=== PATIENT | female | born 1985 | race Caucasian/White ===

== ENCOUNTER 2019-12-15 15:14 | Inpatient (IN) ==
[2019-12-15] MEDS ORDERED: NIFEdipine 10 MG CAP PO ONE (15:30)
[2019-12-15] MEDS ORDERED: OXYTOCIN 30 UNITS/500 ML BAG IV PRN ×2 (16:08)
--- NOTE | 2019-12-15 16:21 | History & Physical Report ---
Date of Service December 15, 2019 Assessment & Plan (1) : Ms. Juarez is a 34 y/o female at 38w6d presenting from the clinic after continued elevated BPs and with increased protein in her urine consistent with pre-eclampsia Severe HTN: - 3+ protein on urine dip, with BPs ranging in 180s/100s - will start induction with cervical balloon and IV pitocin. - monitor pre-eclamptic labs - continue to monitor BPs GBS positive: - started Pen G load, with Q4h dosing until delivery (2) GBS (group B Streptococcus carrier), +RV culture, currently : (3) Severe hypertension: History of Present Illness Primary Care Provider: NO PCP Ms. Juarez is a 34 y/o female at 38w6d presenting from the clinic after continued elevated BPs and with increased protein in her urine; being admitted for induction of labor; complications with HTN this . frequently attended OB appointments; no contractions; still feeling good movement; no fluid loss; no vaginal blood loss. no PIH symptoms currently although she did have a dull headache last night that resolved. Labs: (05/16/19) Blood type: O positive Antibody screen: negative Rubella: immune VDRL/RPR: negative Gonorrhea: negative Chlamydia: negative HIV: non-reactive HbSAg: negative GBS positive passed Glucose tolerance Allergies Allergy/AdvReac Type Severity Reaction Status Date / Time Sulfa (Sulfonamide Allergy Mild Verified 12/15/19 11:12 Antibiotics) Home Medications Home Medications Medication Instructions Recorded Confirmed Type albuterol sulfate 2 puff INHALATION QID PRN 12/15/19 12/15/19 History cetirizine 10 mg PO DAILY 12/15/19 12/15/19 History vit-iron fum-folic ac 1 tab PO DAILY 12/15/19 12/15/19 History [ Vitamin] Patient History Medical History (Updated 12/15/19 @ 16:37 by Robel Herrera MD) Depression with anxiety History of varicella Surgical History (Updated 05/30/19 @ 12:21 by Promise Todd) S/P nasal septoplasty S/P wisdom tooth extraction Family History (Updated 05/30/19 @ 12:25 by Promise Todd) Family/Other Breast cancer Father Heart disease Uncle Heart disease Grandfather (Paternal) Heart disease Mother Hypertension Aunt Hypertension Social History (Updated 05/30/19 @ 12:25 by Promise Todd) Preferred Language: Bhutanese Communication Ability: Effective Valet Required: No Beliefs That Will Affect Care: None marital status: Current Living Situation: Spouse Other Information That Helps Us Care for You: No Feels Safe at Home: Yes Safety Concerns: Feels Safe At This Time Smoking Status: Never smoker Do You Dip or Chew Tobacco: No ; Second Hand Exposure: No ; Tobacco Cessation Education Requested by Patient: No Hx Alcohol Use: No Hx Substance Use: No Review of Systems Constitutional: denies fever; chills; sweats; headache Respiratory: denies shortness of breath, difficulty breathing Cardiac: denies chest pain; palpitations; chest pressure Breast: denies breast pain : denies dysuria Physical Exam Physical Exam: General: alert; oriented; no acute distress Cardiac: RRR; no m/g/r Respiratory: CTAB a/p; no wheezes/rales/rhonchi; no increased work of breathing; symmetrical chest rise; no respiratory distress Abdomen: soft; NT/ND; bowel sounds positive Lower extrem: no lower extremity edema or swelling; no deep calf pain; Madeline's sign negative b/l Genitourinary: OB Exam Abdomen: + vertex and + estimated weight (8-9 pounds) Manual OB Exam: + cervical dilation 1 cm, + cervical effacement 60% and + station -1 OB Exam Monitor Tracing: + external FHT monitor used, + external uterine monitor used, + category I and + normal FHT variability Results & Data Vital Signs (Past 12 Hours) Vital Signs Temp Pulse Resp BP 12/15/19 16:11 90 185/108 H 12/15/19 16:02 82 181/104 H 12/15/19 15:51 86 183/108 H 12/15/19 15:40 88 180/105 H 12/15/19 15:20 36.7 C 18 Code Status & VTE Plan VTE Prophylaxis Plan VTE Prophylaxis will be ordered: No Supervising Physician Co-Signing Physician Notes Resident Physician Supervision Note: I interviewed and examined the patient. Discussed with Dr. Herrera and agree with findings and plan as documented in the note. Any exceptions or clarifications are listed here: [None] Documented By: Rachael Tafoya MD, FACOG Coding Level of Care Code None Diagnoses Z34.90 GBS (group B Streptococcus carrier), +RV culture, currently O99.820 Severe hypertension I10 Resident Activity Tracking Resident Involvement: Resident Care Provided Care Provided: OB Delivery
[2019-12-15 16:30] LABS: Hematocrit (blood only) 40.1 % (37-47); Hemoglobin 13.5 g/dL (12.0-16.0); Mean Corpuscular Hemoglobin 29.2 pg (25-34); Mean Corpuscular Volume 86.6 fL (80-100); Mean Platelet Volume 10.9 fL (7.4-10.4); Platelet Count 245 K/uL (130-400); RDW Coefficient of Variation 14.2 % (11.5-14.5); RDW Standard Deviation 44.8 fL (36.4-46.3); Red Blood Count 4.63 M/uL (4.2-5.4); White Blood Count 12.52 K/uL (4.8-10.8)
[2019-12-15] MEDS ORDERED: PENICILLIN G POTASSIUM 6 MU in DEXTROSE 5% 250 ML IV ONE (16:30)
[2019-12-15] MEDS: LACTATED RINGER'S 1,000 ML IV PRN (16:34)
[2019-12-15 16:39] LABS: Mean Corpuscular Hgb Conc 33.7 g/dL (32-36)
[2019-12-15 17:02] LABS: Creatinine Clr Calc Pharmacy 111.7 ml/min; Est GFR (African American) 110.6; Est GFR (Non-African American) 95.4
[2019-12-15] MEDS ORDERED: NIFEdipine 10 MG CAP PO STA (18:38)
[2019-12-15] MEDS ORDERED: LABETALOL HCL IV 5 MG/ML 20ML IV ONE (19:44)
[2019-12-15] MEDS ORDERED: LABETALOL HCL IV 5 MG/ML 20ML IV STA ×3 (19:46→23:20)
[2019-12-15] MEDS ORDERED: ACETAMINOPHEN 325 MG TAB PO PRN (22:02)
[2019-12-15] MEDS ORDERED: ACETAMINOPHEN 325 MG TAB ONE (22:05)
[2019-12-15 22:53] LABS: Basophils # (auto) 0.04 K/uL (0-0.2); Basophils % (auto) 0.3 %; Eosinophils # (auto) 0.13 K/uL (0-0.5); Eosinophils % (auto) 0.9 %; Hematocrit (blood only) 41.1 % (37-47); Hemoglobin 14.2 g/dL (12.0-16.0); Immature Granulocytes # (auto) 0.12 K/uL (0.00-0.02); Immature Granulocytes % (auto) 0.9 %; Lymphocytes # (auto) 1.99 K/uL (1.2-3.4); Lymphocytes % (auto) 14.5 %; Mean Corpuscular Hemoglobin 29.8 pg (25-34); Mean Corpuscular Volume 86.3 fL (80-100); Mean Platelet Volume 10.7 fL (7.4-10.4); Monocytes # (auto) 0.95 K/uL (0.11-0.59); Monocytes % (auto) 6.9 %; Neutrophils # (auto) 10.51 K/uL (1.4-6.5); Neutrophils % (auto) 76.5 %; Platelet Count 273 K/uL (130-400); RDW Coefficient of Variation 14.3 % (11.5-14.5); RDW Standard Deviation 44.4 fL (36.4-46.3); Red Blood Count 4.76 M/uL (4.2-5.4); White Blood Count 13.74 K/uL (4.8-10.8)
[2019-12-15 22:56] LABS: Mean Corpuscular Hgb Conc 34.5 g/dL (32-36)
[2019-12-15 23:08] LABS: Creatinine Clr Calc Pharmacy 129.3 ml/min; Est GFR (African American) 131.9; Est GFR (Non-African American) 113.8
[2019-12-16] MEDS ORDERED: Nursing to Pharmacy Communication STA ×2 (00:28→01:49)
[2019-12-16] MEDS ORDERED: LABETALOL HCL IV 5 MG/ML 20ML IV STA ×4 (00:40→12:59)
[2019-12-16] MEDS: LACTATED RINGER'S 1,000 ML IV PRN ×2 (01:54→07:57)
[2019-12-16] MEDS ORDERED: ePHEDrine sulfate 50 MG/ML AMP ONE (02:21)
[2019-12-16] MEDS ORDERED: BUPIVACAINE 0.25% 30 ML VIAL ONE (02:21)
[2019-12-16] MEDS ORDERED: fentaNYL citrate 100 MCG/2 ML VIAL ONE (02:21)
[2019-12-16] MEDS ORDERED: fentaNYL 2MCG/ML ROPIV 1.25MG/ML 100 ML BAG EPI ONE (02:21)
[2019-12-16] MEDS: PENICILLIN G POTASSIUM 3 MU in DEXTROSE 5% 100 ML IV PRN ×3 (02:27→10:26)
--- NOTE | 2019-12-16 02:28 | Obstetrical Progress Note ---
Date of Service December 16, 2019 Assessment & Plan (1) Severe hypertension: continue to monitor BP will give another dose of 80mg IV labetalol , if still elevated- will do IV hydralazine minimal cervical change on 17 milliunits of pitocin. patient agreeable to epidural analgesia - will then place [facility] to manage pitocin augmentation. Subjective Patient now getting more painful but contractions still not regular. She had a headache earlier after nifedipine which has now gotten better. No other PIH symptoms. BP has been difficult to control despite 2 doses of po Procardia, and a total of 200mg IV labetalol. Last dose of labetalol 80mg IV has been most effective. BP currently now 170/91. pitocin now on 19 milliunits. Review of Systems Review of Systems: All systems reviewed & are unremarkable except as noted in HPI & below Physical Exam Constitutional: WD/WN, vitals as above Psychiatric: A+Ox3, euthymic affect Genitourinary: Manual OB Exam: + cervical dilation 5 cm, + cervical effacement 90% and + station -1 OB Exam Monitor Tracing: + external FHT monitor used, + external uterine monitor used, + category I and + normal FHT variability Results & Data Vital Signs (Past 12 Hours) Vital Signs Temp Pulse Resp BP Pulse Ox 12/16/19 02:20 71 97 12/16/19 02:17 70 170/90 H 12/16/19 02:15 74 98 12/16/19 02:10 74 97 12/16/19 02:07 73 165/91 H 12/16/19 02:05 74 98 12/16/19 02:03 68 173/88 H 12/16/19 02:00 75 98 12/16/19 01:55 73 99 12/16/19 01:50 68 98 12/16/19 01:48 69 204/103 H 12/16/19 01:45 71 98 12/16/19 01:40 71 97 12/16/19 01:35 68 98 12/16/19 01:30 67 98 12/16/19 01:27 69 181/95 H 12/16/19 01:25 66 98 12/16/19 01:20 70 98 12/16/19 01:15 72 97 12/16/19 01:10 73 98 12/16/19 01:05 69 99 12/16/19 01:03 74 158/101 H 12/16/19 01:01 97.5 F L 12/16/19 01:00 81 98 12/16/19 00:55 77 99 12/16/19 00:53 76 175/108 H 12/16/19 00:50 78 98 12/16/19 00:45 72 99 12/16/19 00:42 68 183/92 H 12/16/19 00:40 75 98 12/16/19 00:35 75 98 12/16/19 00:31 73 201/108 H 12/16/19 00:30 75 97 12/16/19 00:26 71 194/105 H 12/16/19 00:25 74 97 12/16/19 00:22 70 198/101 H 12/16/19 00:20 69 98 12/16/19 00:15 74 97 12/16/19 00:10 71 98 12/16/19 00:05 86 99 12/16/19 00:00 79 173/103 H 12/15/19 23:58 74 183/106 H 12/15/19 23:57 75 97 12/15/19 23:52 75 98 12/15/19 23:47 72 99 12/15/19 23:46 73 173/107 H 12/15/19 23:42 73 98 12/15/19 23:37 74 99 12/15/19 23:36 77 168/105 H 12/15/19 23:32 76 99 12/15/19 23:27 80 98 12/15/19 23:26 77 165/98 H 12/15/19 23:22 76 99 12/15/19 23:18 74 181/113 H 12/15/19 23:17 74 99 12/15/19 23:12 75 100 12/15/19 23:09 72 181/110 H 12/15/19 23:07 83 99 12/15/19 23:05 97.5 F L 20 12/15/19 23:02 84 98 12/15/19 22:57 77 98 12/15/19 22:52 79 98 12/15/19 22:48 78 162/103 H 12/15/19 22:47 81 97 12/15/19 22:42 83 157/101 H 98 12/15/19 22:37 82 97 12/15/19 22:32 84 170/98 H 98 12/15/19 22:27 88 99 12/15/19 22:22 85 169/101 H 99 12/15/19 22:17 78 98 12/15/19 22:12 90 98 12/15/19 22:09 85 180/108 H 12/15/19 22:07 91 H 97 12/15/19 22:02 89 98 12/15/19 21:57 96 H 99 12/15/19 21:52 78 180/111 H 12/15/19 21:51 79 185/108 H 12/15/19 21:50 76 96 12/15/19 21:45 81 97 12/15/19 21:40 78 97 12/15/19 21:35 79 98 12/15/19 21:30 81 177/100 H 98 12/15/19 21:25 78 98 12/15/19 21:20 84 98 12/15/19 21:15 77 98 12/15/19 21:11 89 172/93 H 12/15/19 21:10 87 100 12/15/19 21:05 87 99 12/15/19 21:00 89 98 12/15/19 20:55 92 H 98 12/15/19 20:51 81 175/94 H 12/15/19 20:50 83 98 12/15/19 20:45 90 99 12/15/19 20:40 91 H 98 12/15/19 20:35 85 99 12/15/19 20:30 95 H 99 12/15/19 20:27 90 159/98 H 12/15/19 20:25 96 H 98 12/15/19 20:17 89 163/89 H 12/15/19 20:16 89 98 12/15/19 20:11 89 99 12/15/19 20:07 88 159/94 H 12/15/19 20:06 87 98 12/15/19 20:01 86 99 12/15/19 19:57 83 154/90 H 12/15/19 19:56 86 98 12/15/19 19:51 98 H 99 12/15/19 19:48 99 H 170/99 H 12/15/19 19:46 101 H 99 12/15/19 19:41 104 H 99 12/15/19 19:40 20 12/15/19 19:37 106 H 195/104 H 12/15/19 19:36 107 H 99 12/15/19 19:31 107 H 100 12/15/19 19:26 111 H 99 12/15/19 19:20 101 H 180/108 H 12/15/19 19:19 94 H 100 12/15/19 19:14 94 H 100 12/15/19 19:11 96 H 182/104 H 12/15/19 19:10 98.4 F 20 12/15/19 19:09 93 H 100 12/15/19 19:06 87 179/101 H 12/15/19 19:04 95 H 100 12/15/19 19:01 85 180/101 H 12/15/19 18:59 88 100 12/15/19 18:54 84 100 12/15/19 18:51 85 179/102 H 12/15/19 18:49 85 100 12/15/19 18:44 87 100 12/15/19 18:41 92 H 183/107 H 12/15/19 18:39 98 H 100 12/15/19 18:34 94 H 100 12/15/19 18:32 97 H 92 12/15/19 18:31 88 183/100 H 12/15/19 18:29 100 H 99 12/15/19 18:24 92 H 188/109 H 98 12/15/19 18:23 95 H 89 L 12/15/19 18:17 89 100 12/15/19 18:12 92 H 100 12/15/19 18:11 88 180/95 H 12/15/19 18:07 97 H 99 12/15/19 18:02 90 177/95 H 99 12/15/19 17:57 96 H 98 12/15/19 17:52 93 H 178/95 H 100 12/15/19 17:47 91 H 99 12/15/19 17:42 99 H 175/97 H 99 12/15/19 17:41 93 H 166/90 H 12/15/19 17:37 95 H 99 12/15/19 17:32 100 H 99 12/15/19 17:31 94 H 169/93 H 12/15/19 17:27 102 H 100 12/15/19 17:22 100 H 99 12/15/19 17:21 92 H 177/94 H 12/15/19 17:17 94 H 99 12/15/19 17:12 93 H 100 12/15/19 17:11 94 H 173/91 H 12/15/19 17:07 95 H 100 12/15/19 17:02 93 H 100 12/15/19 17:01 91 H 178/98 H 12/15/19 16:57 91 H 99 12/15/19 16:52 86 100 12/15/19 16:51 80 190/104 H 12/15/19 16:47 87 100 12/15/19 16:42 77 100 12/15/19 16:41 79 206/113 H 12/15/19 16:40 98.1 F 18 12/15/19 16:37 83 100 12/15/19 16:32 74 100 12/15/19 16:31 84 83 L 12/15/19 16:11 90 185/108 H 12/15/19 16:02 82 181/104 H 12/15/19 15:51 86 183/108 H 12/15/19 15:40 88 180/105 H 12/15/19 15:20 98.1 F 18 PG Care Time/CCT Total # of Minutes Spent Total Time Spent with Patient: Total time spent is greater than 50% in coordination of care (as documented) at patient's floor/unit and/or counseling patient: Coding Level of Care Code None Diagnoses Severe hypertension I10
[2019-12-16 02:35] LABS: Platelet Count 248 K/uL (130-400)
[2019-12-16] MEDS ORDERED: NALOXONE HCL 1 MG in SODIUM CHLORIDE 0.9% 1000ML 1,000 ML IV PRN (03:37)
[2019-12-16] MEDS ORDERED: ONDANSETRON INJ 2 MG/ML 2 ML VIAL IV PRN (03:37)
[2019-12-16] MEDS ORDERED: NALBUPHINE HCL INJ 10 MG/ML AMP IV PRN (03:37)
[2019-12-16] MEDS ORDERED: NALOXONE HCL 0.4 MG/1 ML VIAL/CARP IV PRN (03:37)
[2019-12-16] MEDS ORDERED: PROMETHAZINE HCL 6.25 MG in SODIUM CHLORIDE 0.9% 50 ML IV PRN (03:37)
[2019-12-16] MEDS ORDERED: ePHEDrine sulfate 50 MG/ML AMP IV PRN (03:37)
[2019-12-16] MEDS ORDERED: fentaNYL 2MCG/ML ROPIV 1.25MG/ML 100 ML BAG EPI PRN (03:37)
[2019-12-16] MEDS ORDERED: DiphenhydrAMINE HCL 50 MG/ML VIAL IV PRN (03:37)
--- NOTE | 2019-12-16 03:37 | Anesthesiology Consultation ---
Date of Service December 16, 2019 Severe Pre Ecclampsia Assessment & Plan (1) Encounter for pre-operative examination: Chart Review Chart Review: Acceptable Risk for Surgery and Patient NOT seen in Pre Admission Testing Consults Requested none ASA ASA3 Proposed Anesthesia Anesthesia Type: Labor Epidural History Height/Weight Height: 5 ft 1.5 in Weight: 105.687 kg Allergies Allergy/AdvReac Type Severity Reaction Status Date / Time Sulfa (Sulfonamide Allergy Mild Verified 12/15/19 11:12 Antibiotics) Medications Home Medications Medication Instructions Recorded Confirmed Last Taken albuterol sulfate 2 puff INHALATION QID PRN 12/15/19 12/15/19 Unknown cetirizine 10 mg PO DAILY 12/15/19 12/15/19 12/15/19 09:00 vit-iron fum-folic ac 1 tab PO DAILY 12/15/19 12/15/19 12/15/19 09:00 [ Vitamin] Active Medications Generic Name Dose Route Start Last Admin Trade Name Freq PRN Reason Stop Dose Admin Acetaminophen 650 mg 12/15/19 22:02 12/15/19 22:07 Tylenol PO 01/14/20 22:01 650 mg Q4H PRN Administration Headache Lactated Ringer's 1,000 mls @ 125 mls/hr 12/15/19 16:08 12/16/19 01:54 Lr IV 12/17/19 16:07 125 mls/hr .Q8H PRN Administration L&D Protocol Protocol Penicillin G Potassium 3 mu/ 106 mls @ 100 mls/hr 12/15/19 16:08 12/16/19 02:27 Dextrose IV 12/25/19 16:07 100 mls/hr Q4H PRN Administration Give until delivery Oxytocin 30 units in 500 mls @ 17 mls/hr 12/15/19 16:08 12/16/19 01:30 Pitocin IV 12/17/19 16:07 1.02 units/hr .Q24H PRN 17 mls/hr Labor Induction/Augmentation Titration Protocol 1.02 UNITS/HR Past Medical History Medical History Depression with anxiety History of varicella Past Family History Family History Family/Other Breast cancer Father Heart disease Uncle Heart disease Grandfather (Paternal) Heart disease Mother Hypertension Aunt Hypertension Past Surgical History Surgical History S/P nasal septoplasty S/P wisdom tooth extraction Social History Smoking Status: Never smoker Do You Dip or Chew Tobacco: No Hx Alcohol Use: No Hx Substance Use: No substance use type: does not use Physical Exam Vital Signs Last Vital Signs Temp 36.4 C L 12/16/19 03:10 Pulse 72 12/16/19 03:32 Resp 20 12/16/19 03:14 BP 137/72 12/16/19 03:31 Pulse Ox 99 12/16/19 03:32 Testing Laboratory Results 12/16/19 02:29 12/15/19 22:24
[2019-12-16] MEDS ORDERED: LABETALOL HCL IV 5 MG/ML 20ML IV ONE (06:16)
[2019-12-16] MEDS ORDERED: Nursing to Pharmacy Communication ONE (06:19)
[2019-12-16 07:29] LABS: Basophils # (auto) 0.02 K/uL (0-0.2); Basophils % (auto) 0.1 %; Eosinophils # (auto) 0.02 K/uL (0-0.5); Eosinophils % (auto) 0.1 %; Hematocrit (blood only) 39.8 % (37-47); Hemoglobin 13.3 g/dL (12.0-16.0); Immature Granulocytes % (auto) 0.6 %; Lymphocytes # (auto) 0.96 K/uL (1.2-3.4); Lymphocytes % (auto) 5.6 %; Mean Corpuscular Hemoglobin 28.9 pg (25-34); Mean Corpuscular Volume 86.5 fL (80-100); Mean Platelet Volume 10.7 fL (7.4-10.4); Monocytes # (auto) 0.85 K/uL (0.11-0.59); Neutrophils # (auto) 15.19 K/uL (1.4-6.5); Neutrophils % (auto) 88.6 %; Platelet Count 233 K/uL (130-400); RDW Coefficient of Variation 14.4 % (11.5-14.5); RDW Standard Deviation 44.7 fL (36.4-46.3); White Blood Count 17.14 K/uL (4.8-10.8)
[2019-12-16 07:54] LABS: Creatinine Clr Calc Pharmacy 114.6 ml/min; Est GFR (Non-African American) 98.4
[2019-12-16 08:04] LABS: Mean Corpuscular Hgb Conc 33.4 g/dL (32-36)
[2019-12-16] MEDS ORDERED: ACETAMINOPHEN 325 MG TAB PO PRN (12:11)
[2019-12-16] MEDS ORDERED: bisacodyL 10 MG SUPP PR PRN (12:11)
[2019-12-16] MEDS ORDERED: HYDROCORTISONE ACETATE 25 MG SUPP PR PRN (12:11)
[2019-12-16] MEDS ORDERED: DIPHTHERIA/TETANUS/PERTUSSIS 0.5 ML SYR/VIAL IM ONE (12:11)
[2019-12-16] MEDS ORDERED: SUPERCREAM 0.870% 15 GM JAR EXT PRN (12:11)
[2019-12-16] MEDS ORDERED: BENZOCAINE 20% AER SPR 82.5 GM CAN EXT PRN (12:11)
[2019-12-16] MEDS ORDERED: OXYTOCIN 30 UNITS/500 ML BAG IV PRN (12:11)
[2019-12-16] MEDS ORDERED: MAG SULFATE 6GM BOLUS FROM BAG IV ONE (12:59)
[2019-12-16] MEDS ORDERED: LABETALOL HCL 200 MG TAB PO SCH ×2 (13:10→21:00)
--- NOTE | 2019-12-16 13:27 | Delivery Summary ---
DATE OF OPERATION: 12/16/2019 PROCEDURE: Normal spontaneous vaginal delivery with first degree perineal laceration repair. SURGEON: López Burnett MD. PREOPERATIVE DIAGNOSES: 1. Single intrauterine at 39 weeks 0 days gestational age. 2. Preeclampsia. 3. Group B Streptococcus positive. POSTOPERATIVE DIAGNOSES: 1. Single intrauterine at 39 weeks 0 days gestational age. 2. Preeclampsia. 3. Group B Streptococcus positive. 4. Status post delivery. ESTIMATED BLOOD LOSS: 300 mL. DRAINS: None. FLUIDS: Continuous lactated Ringer. URINE OUTPUT: Not measured. COMPLICATIONS: None. FINDINGS: Viable with weight pending, Apgars of 6 and 9 at one and five minutes, respectively. DESCRIPTION OF PROCEDURE: The patient progressed to 10 cm dilated, 100% effaced, +3 station, pushed over intact perineum with epidural anesthesia and delivered a viable with weight and Apgars as noted above. Head of the delivered in GRICELDA position, restituted to right transverse. There was no nuchal but a big portion of cord followed the head and the body and shoulders quickly followed. There was noted to be a compound presentation of the posterior arm, which was unable to be swept out and was delivered through. The was noted to be floppy upon delivery with a terminal thick meconium noted. The cord was quickly double clamped and cut. was taken to the waiting nursery staff. cord blood was obtained. Attention was then turned to deliver the placenta, which was delivered intact with 3-vessel cord with gentle cord traction. On inspection of the perineum, vagina, and cervix, there was noted to be first degree perineal laceration, which was repaired with 3-0 Vicryl continuous running stitch. Needle, sponge and instrument counts were correct at the completion of the case. Both mother and were stable in the immediate post-delivery period. I attest to the content of the Intraoperative Record and any orders documented therein. Any exception s are noted below.
--- NOTE | 2019-12-16 13:32 | Labor Progress Brief Note ---
Date of Service December 16, 2019 Subjective Evaluated post delivery and noted to have persistent elevated BPs. otherwise denying any PIH symptoms. Recommended MgSO4. Assessment & Plan (1) Supervision of normal first : (2) Severe pre-eclampsia: Recommended MgSO4 which patient is agreeable to. Will treat current severe range BPs with Labetalol 20mg stat and will continue protocol until BPs mild range of better. Discussed risks of seizure and MgSO4. Will continue to monitor. Labs now stat and again at 8pm today. Results & Data Vital Signs (Past 12 Hours) Vital Signs Temp Pulse Resp BP Pulse Ox 12/16/19 13:04 81 198/109 H 12/16/19 12:44 70 195/106 H 12/16/19 12:43 76 196/103 H 12/16/19 12:33 176 H 178/105 H 12/16/19 12:18 75 173/97 H 12/16/19 12:04 82 180/91 H 12/16/19 12:03 83 190/96 H 12/16/19 11:43 78 94 12/16/19 11:38 74 94 12/16/19 11:33 75 94 12/16/19 11:28 84 94 12/16/19 11:26 77 185/93 H 12/16/19 11:23 92 H 97 12/16/19 11:18 96 H 97 12/16/19 11:13 95 H 96 12/16/19 11:11 72 177/90 H 12/16/19 11:08 78 94 12/16/19 11:03 86 95 12/16/19 11:01 87 82 L 12/16/19 10:58 84 96 12/16/19 10:57 80 178/98 H 12/16/19 10:52 83 93 12/16/19 10:49 88 83 L 12/16/19 10:47 86 94 12/16/19 10:44 87 80 L 12/16/19 10:42 81 195/89 H 94 12/16/19 10:38 93 H 79 L 12/16/19 10:37 85 96 12/16/19 10:32 95 H 100 12/16/19 10:27 97 H 169/92 H 97 12/16/19 10:22 68 92 12/16/19 10:17 98 H 87 L 12/16/19 10:16 89 75 L 12/16/19 10:13 72 160/82 H 12/16/19 10:12 76 92 12/16/19 10:10 78 79 L 12/16/19 10:07 79 96 12/16/19 10:03 82 77 L 12/16/19 10:02 83 97 12/16/19 09:58 83 159/79 H 77 L 12/16/19 09:57 76 94 12/16/19 09:52 101 H 94 12/16/19 09:47 88 97 12/16/19 09:45 79 166/84 H 85 L 12/16/19 09:42 76 161/121 H 99 12/16/19 09:40 84 85 L 12/16/19 09:37 71 100 12/16/19 09:32 74 99 12/16/19 09:28 75 184/101 H 12/16/19 09:27 84 98 12/16/19 09:24 71 88 L 12/16/19 09:22 76 100 12/16/19 09:17 77 100 12/16/19 09:13 79 184/114 H 12/16/19 09:12 77 100 12/16/19 09:07 79 99 12/16/19 09:02 81 100 12/16/19 08:57 72 181/103 H 99 12/16/19 08:52 79 99 12/16/19 08:47 78 100 12/16/19 08:42 83 99 12/16/19 08:41 81 172/97 H 12/16/19 08:37 72 100 12/16/19 08:32 71 100 12/16/19 08:27 69 100 12/16/19 08:26 74 162/89 H 12/16/19 08:22 74 99 12/16/19 08:17 73 99 12/16/19 08:12 70 152/78 H 100 12/16/19 08:07 71 99 12/16/19 08:02 71 99 12/16/19 07:57 75 99 12/16/19 07:52 75 99 12/16/19 07:51 73 153/89 H 12/16/19 07:47 74 98 12/16/19 07:42 76 97 12/16/19 07:37 77 98 12/16/19 07:32 82 98 12/16/19 07:27 89 99 12/16/19 07:22 50 L 152/92 H 99 12/16/19 07:17 71 99 12/16/19 07:12 73 98 12/16/19 07:10 36.9 C 72 20 181/96 H 12/16/19 07:07 73 99 12/16/19 07:02 75 98 12/16/19 07:01 71 170/88 H 12/16/19 06:57 75 98 12/16/19 06:52 73 98 12/16/19 06:50 73 175/91 H 12/16/19 06:47 74 98 12/16/19 06:42 76 98 12/16/19 06:38 73 165/90 H 12/16/19 06:37 77 97 12/16/19 06:32 77 98 12/16/19 06:30 20 12/16/19 06:29 71 178/101 H 12/16/19 06:27 70 98 12/16/19 06:22 74 183/107 H 99 12/16/19 06:17 71 98 12/16/19 06:12 75 99 12/16/19 06:08 71 197/102 H 12/16/19 06:07 71 98 12/16/19 06:02 81 100 12/16/19 06:00 36.7 C 20 12/16/19 05:57 80 99 12/16/19 05:52 73 178/101 H 98 12/16/19 05:47 71 98 12/16/19 05:42 75 98 12/16/19 05:38 69 187/103 H 12/16/19 05:37 68 99 12/16/19 05:32 65 99 12/16/19 05:30 20 12/16/19 05:27 69 99 12/16/19 05:23 67 177/95 H 12/16/19 05:22 66 100 12/16/19 05:17 67 99 12/16/19 05:12 74 100 12/16/19 05:09 66 162/83 H 12/16/19 05:07 65 100 12/16/19 05:02 68 98 12/16/19 05:01 36.7 C 12/16/19 04:59 20 12/16/19 04:57 67 99 12/16/19 04:52 67 150/78 H 99 12/16/19 04:47 68 99 12/16/19 04:42 68 99 12/16/19 04:38 64 148/74 H 12/16/19 04:37 67 99 12/16/19 04:32 68 99 12/16/19 04:29 20 12/16/19 04:27 68 99 12/16/19 04:23 68 145/73 H 12/16/19 04:22 69 99 12/16/19 04:17 67 99 12/16/19 04:12 69 98 12/16/19 04:07 69 138/71 99 12/16/19 04:02 70 98 12/16/19 03:57 67 99 12/16/19 03:52 68 141/74 H 99 12/16/19 03:47 71 98 12/16/19 03:42 72 99 12/16/19 03:37 75 140/73 99 12/16/19 03:32 72 99 12/16/19 03:31 68 137/72 12/16/19 03:30 20 12/16/19 03:27 67 98 12/16/19 03:25 20 12/16/19 03:24 78 137/81 12/16/19 03:22 70 134/73 100 12/16/19 03:20 64 20 146/76 H 12/16/19 03:18 65 133/73 12/16/19 03:17 69 98 12/16/19 03:16 65 20 139/71 12/16/19 03:14 65 20 138/71 12/16/19 03:12 57 L 20 139/71 99 12/16/19 03:10 36.4 C L 67 20 138/69 12/16/19 03:08 56 L 156/92 H 12/16/19 03:07 61 98 12/16/19 03:06 62 155/91 H 12/16/19 03:02 61 100 12/16/19 02:58 60 156/93 H 12/16/19 02:57 64 97 12/16/19 02:52 63 99 12/16/19 02:47 73 99 12/16/19 02:44 69 157/93 H 12/16/19 02:42 64 97 12/16/19 02:37 78 98 12/16/19 02:30 72 99 12/16/19 02:25 71 98 12/16/19 02:22 68 170/90 H 12/16/19 02:20 71 97 12/16/19 02:17 70 170/90 H 12/16/19 02:15 74 98 12/16/19 02:10 74 97 12/16/19 02:07 73 165/91 H 12/16/19 02:05 74 98 12/16/19 02:03 68 173/88 H 12/16/19 02:00 75 98 12/16/19 01:55 73 99 12/16/19 01:50 68 98 12/16/19 01:48 69 204/103 H 12/16/19 01:45 71 98 12/16/19 01:40 71 97 12/16/19 01:35 68 98 12/16/19 01:30 67 98 Coding Level of Care Code None Diagnoses Supervision of normal first Z34.00 Severe pre-eclampsia O14.10
[2019-12-16 13:46] LABS: Creatinine Clr Calc Pharmacy 91.4 ml/min; Est GFR (African American) 86.8; Est GFR (Non-African American) 74.9
[2019-12-16] MEDS: MAGNESIUM SULFATE / WTR 40 GM/1,000 ML BAG IV SCH (14:01)
[2019-12-16 14:24] LABS: Hematocrit (blood only) 42.6 % (37-47); Hemoglobin 14.5 g/dL (12.0-16.0); Mean Corpuscular Hemoglobin 29.7 pg (25-34); Mean Corpuscular Volume 87.1 fL (80-100); Mean Platelet Volume 10.8 fL (7.4-10.4); Platelet Count 251 K/uL (130-400); RDW Coefficient of Variation 14.3 % (11.5-14.5); RDW Standard Deviation 45.6 fL (36.4-46.3); Red Blood Count 4.89 M/uL (4.2-5.4); White Blood Count 28.21 K/uL (4.8-10.8)
--- NOTE | 2019-12-16 14:47 | Anesthesia Procedure Note ---
Date of Service December 16, 2019 Anesthesia Post Epidural Note Vital Signs Vital Signs: Temp Pulse Resp BP Pulse Ox 36.9 C 87 20 165/90 H 94 12/16/19 07:10 12/16/19 14:45 12/16/19 07:10 12/16/19 14:45 12/16/19 11:43 Notes Mental Status: alert / awake / arousable and participated in evaluation Nausea / Vomiting: adequately controlled Pain: adequately controlled Airway Patency, RR, SpO2: stable & adequate BP & HR: stable & adequate Hydration State: stable & adequate Neuraxial Anesthesia: was administered and sensory block is resolving Anesthetic Complications: no major complications apparent and Pt Satisfied with anesthetic care Epidural: Removed without complications and With tip intact Notes: platelets checked and were normal immediately prior to pulling the epidural.
[2019-12-16] MEDS: LACTATED RINGER'S 1,000 ML IV SCH (18:05)
[2019-12-16 20:36] LABS: Hematocrit (blood only) 38.6 % (37-47); Hemoglobin 13.1 g/dL (12.0-16.0); Mean Corpuscular Hemoglobin 29.4 pg (25-34); Mean Corpuscular Volume 86.5 fL (80-100); Mean Platelet Volume 10.7 fL (7.4-10.4); Platelet Count 258 K/uL (130-400); RDW Coefficient of Variation 14.4 % (11.5-14.5); RDW Standard Deviation 45.1 fL (36.4-46.3); Red Blood Count 4.46 M/uL (4.2-5.4); White Blood Count 24.58 K/uL (4.8-10.8)
[2019-12-16 20:37] LABS: Mean Corpuscular Hgb Conc 33.9 g/dL (32-36)
[2019-12-16] MEDS: IBUPROFEN 600 MG TAB PO PRN (20:39)
[2019-12-16] MEDS: DOCUSATE SODIUM 100 MG CAP PO SCH (20:39)
[2019-12-16] MEDS: LABETALOL HCL 200 MG TAB PO SCH (20:40)
[2019-12-16 20:53] LABS: Creatinine Clr Calc Pharmacy 122.3 ml/min; Est GFR (African American) 123.4; Est GFR (Non-African American) 106.4; Magnesium 4.5 mg/dl (1.8-2.4)
[2019-12-17 06:31] LABS: Hemoglobin 12.3 g/dL (12.0-16.0); Mean Corpuscular Hgb Conc 33.2 g/dL (32-36); Mean Corpuscular Volume 87.3 fL (80-100); Mean Platelet Volume 10.6 fL (7.4-10.4); Platelet Count 240 K/uL (130-400); RDW Coefficient of Variation 14.7 % (11.5-14.5); RDW Standard Deviation 46.8 fL (36.4-46.3); Red Blood Count 4.24 M/uL (4.2-5.4); White Blood Count 18.47 K/uL (4.8-10.8)
[2019-12-17] MEDS: MAGNESIUM SULFATE / WTR 40 GM/1,000 ML BAG IV SCH (06:42)
[2019-12-17 07:09] LABS: Albumin Level 1.9 gm/dl (3.4-5.0); BUN Creatinine Ratio 14.7 (10-20); Calcium 7.6 mg/dl (8.5-10.1); Creatinine Clr Calc Pharmacy 131.2 ml/min; Est GFR (African American) 132.6; Est GFR (Non-African American) 114.4; Potassium 4.2 mmol/L (3.5-5.1)
[2019-12-17 07:12] LABS: Albumin Globulin Ratio 0.5 (0.9-2); Bilirubin,Total 0.3 mg/dl (0.2-1); Globulin 3.8 gm/dl (2.5-4.0); Total Protein 5.7 gm/dl (6.4-8.2)
[2019-12-17] MEDS: LACTATED RINGER'S 1,000 ML IV SCH (07:32)
--- NOTE | 2019-12-17 08:39 | Obstetrical Progress Note ---
Date of Service December 17, 2019 Assessment & Plan (1) Severe pre-eclampsia: 34yo . PPD 1 . On MgSO4 for Severe PIH. Patient doing well and is scheduled to d/c Mg at 1145am. BPs significantly improved. Continue Labetalol 400mg BID Otherwise doing well post (2) Supervision of normal first : Subjective Ambulation: limited ambulation (On Mg) Voiding: no voiding problems Diet Tolerance:: regular diet Lochia:: Moderate Patient on MgSO4 for severe PIH. Doing well. Denies PIH symptoms. Physical Exam Gastrointestinal (Abdomen) Percussion/Palpation: abdomen soft; abdomen nontender, no guarding and abdomen not rigid Genitourinary OB Exam Abdomen: + fundal height (Below) Fundus: + firm; not tender and not boggy Results & Data Vital Signs (Past 12 Hours) Vital Signs Temp Pulse Resp BP Pulse Ox 12/17/19 08:30 88 160/99 H 12/17/19 08:14 82 98 12/17/19 08:09 82 98 12/17/19 08:04 91 H 99 12/17/19 07:59 88 98 12/17/19 07:54 83 99 12/17/19 07:49 83 98 12/17/19 07:44 90 98 12/17/19 07:39 83 99 12/17/19 07:34 88 98 12/17/19 07:29 81 142/88 H 98 12/17/19 07:24 83 97 12/17/19 07:19 86 98 12/17/19 07:14 83 97 12/17/19 07:09 82 98 12/17/19 07:04 84 99 12/17/19 06:59 87 98 12/17/19 06:54 94 H 99 12/17/19 06:42 86 98 12/17/19 06:37 79 98 12/17/19 06:33 84 141/91 H 12/17/19 06:31 88 98 12/17/19 06:30 18 12/17/19 06:26 82 98 12/17/19 06:21 82 98 12/17/19 06:16 90 99 12/17/19 06:11 93 H 100 12/17/19 06:06 85 98 12/17/19 06:01 87 98 12/17/19 05:56 88 97 12/17/19 05:51 98 H 100 12/17/19 05:46 82 98 12/17/19 05:41 83 98 12/17/19 05:36 82 98 12/17/19 05:31 82 98 12/17/19 05:30 18 12/17/19 05:29 81 119/67 12/17/19 05:26 94 H 100 12/17/19 05:21 84 98 12/17/19 05:16 83 98 12/17/19 05:11 85 99 12/17/19 05:06 85 98 12/17/19 05:01 85 98 12/17/19 04:56 87 98 12/17/19 04:51 84 98 12/17/19 04:46 87 98 12/17/19 04:41 82 97 12/17/19 04:36 83 98 12/17/19 04:31 82 97 12/17/19 04:30 16 12/17/19 04:29 81 107/58 L 12/17/19 04:26 84 98 12/17/19 04:21 83 98 12/17/19 04:16 85 98 12/17/19 04:11 86 98 12/17/19 04:06 87 98 12/17/19 04:01 86 98 12/17/19 03:56 85 97 12/17/19 03:51 94 H 99 12/17/19 03:46 92 H 95 12/17/19 03:41 96 H 98 12/17/19 03:30 36.4 C L 18 12/17/19 03:29 82 148/77 H 99 12/17/19 03:24 86 99 12/17/19 03:19 82 100 12/17/19 03:14 82 99 12/17/19 03:09 83 98 12/17/19 03:04 84 98 12/17/19 02:59 87 99 12/17/19 02:54 82 98 12/17/19 02:49 82 98 12/17/19 02:44 83 98 12/17/19 02:39 80 98 12/17/19 02:34 82 98 12/17/19 02:30 20 12/17/19 02:29 82 125/65 99 12/17/19 02:24 84 100 12/17/19 02:19 83 98 12/17/19 02:14 85 98 12/17/19 02:09 82 97 12/17/19 02:04 81 97 12/17/19 01:59 82 98 12/17/19 01:54 81 97 12/17/19 01:49 85 99 12/17/19 01:44 84 99 12/17/19 01:39 88 99 12/17/19 01:34 87 99 12/17/19 01:30 18 12/17/19 01:29 79 137/75 98 12/17/19 01:24 83 98 12/17/19 01:19 80 98 12/17/19 01:14 78 99 12/17/19 01:09 84 98 12/17/19 01:04 83 99 12/17/19 00:59 84 99 12/17/19 00:54 82 97 12/17/19 00:49 81 98 12/17/19 00:44 82 97 12/17/19 00:39 85 98 12/17/19 00:34 83 98 12/17/19 00:30 20 12/17/19 00:29 79 134/74 97 12/17/19 00:24 81 98 12/17/19 00:19 84 97 12/17/19 00:14 89 98 12/17/19 00:09 82 98 12/17/19 00:04 83 98 12/16/19 23:59 83 98 12/16/19 23:54 87 98 12/16/19 23:49 87 98 12/16/19 23:44 86 97 12/16/19 23:30 36.7 C 86 20 97 12/16/19 23:29 85 126/69 98 12/16/19 23:24 88 98 12/16/19 23:19 83 99 12/16/19 23:14 83 98 12/16/19 23:09 91 H 99 12/16/19 23:04 89 99 12/16/19 22:59 90 99 12/16/19 22:54 87 99 12/16/19 22:49 87 98 12/16/19 22:45 20 12/16/19 22:44 87 97 12/16/19 22:43 85 120/67 12/16/19 22:39 89 99 12/16/19 22:34 85 97 12/16/19 22:29 84 97 12/16/19 22:24 85 97 12/16/19 22:19 84 97 12/16/19 22:14 84 97 12/16/19 22:09 84 97 12/16/19 22:04 84 97 12/16/19 21:59 84 97 12/16/19 21:54 84 97 12/16/19 21:49 85 98 12/16/19 21:45 20 12/16/19 21:44 85 98 12/16/19 21:42 83 132/72 12/16/19 21:39 85 97 12/16/19 21:34 89 99 12/16/19 21:29 85 98 12/16/19 21:24 87 99 12/16/19 21:19 89 99 12/16/19 21:14 86 99 12/16/19 21:12 83 140/82 12/16/19 21:09 88 99 12/16/19 21:04 63 98 12/16/19 21:00 20 12/16/19 20:51 86 100 12/16/19 20:46 93 H 100 12/16/19 20:41 89 100 12/16/19 20:40 84 178/95 H 12/16/19 20:36 88 99
[2019-12-17] MEDS: LABETALOL HCL 200 MG TAB PO SCH (09:28)
[2019-12-17] MEDS: PRENATAL VITAMIN 1 TAB PO SCH (09:29)
[2019-12-17] MEDS: DOCUSATE SODIUM 100 MG CAP PO SCH ×2 (09:29→20:12)
[2019-12-17] MEDS ORDERED: ALBUTEROL HFA 8 GM INHALER INH PRN (09:39)
[2019-12-17] MEDS: CETIRIZINE HCL 10 MG TABLET PO SCH (10:13)
[2019-12-17] MEDS ORDERED: bisacodyL 5 MG TABEC PO SCH (20:00)
[2019-12-17] MEDS: IBUPROFEN 600 MG TAB PO PRN (20:12)
[2019-12-17] MEDS ORDERED: LABETALOL HCL 300 MG TAB PO SCH (21:00)
--- NOTE | 2019-12-18 05:57 | Obstetrical Progress Note ---
Date of Service <Robel Herrera MD - Last Filed: 12/18/19 06:44> December 18, 2019 Assessment & Plan <Robel Herrera MD - Last Filed: 12/18/19 06:44> (1) : PPD#2 - continue routine care - encourage ambulation, and oral intake - after discharge will have follow-up in 6 weeks - BP check in 1 week Subjective <Robel Herrera MD - Last Filed: 12/18/19 06:44> Ms. Juarez is a 34 y/o female ; PPD #2 following spontaneous vaginal delivery; doing well this morning; having minimal abdominal cramping/pain; voiding well; tolerating meals overnight; and able to ambulate some; some persistent spotting with intermittent improvement this morning. Review of Systems Constitutional: denies fever; chills; sweats; headache Respiratory: denies shortness of breath, difficulty breathing Cardiac: denies chest pain; palpitations; chest pressure Breast: denies breast pain : denies dysuria Physical Exam <Robel Herrera MD - Last Filed: 12/18/19 06:44> General: alert; oriented; no acute distress Cardiac: RRR; no m/g/r Respiratory: CTAB a/p; no wheezes/rales/rhonchi; no increased work of breathing; symmetrical chest rise; no respiratory distress Abdomen: soft; NT/ND; bowel sounds positive Uterus: uterine fundus firm; palpable 3cm below umbilicus Lower extrem: no lower extremity edema or swelling; no deep calf pain; Madeline's sign negative b/l Results & Data <Robel Herrera MD - Last Filed: 12/18/19 06:44> Vital Signs (Past 12 Hours) Vital Signs Temp Pulse Resp BP Pulse Ox 12/18/19 03:35 36.4 C L 78 18 152/87 H 98 12/17/19 22:50 36.6 C 81 16 135/85 97 12/17/19 20:05 36.5 C 90 16 149/93 H 98 Laboratory Results 12/17/19 Range/Units 06:06 Sodium 139 (136-145) mmol/L Potassium 4.2 (3.5-5.1) mmol/L Chloride 108 H (98-107) mmol/L Carbon Dioxide 26 (21-32) mmol/L Anion Gap 5.0 (3-11) BUN 10 (7-18) mg/dl Creatinine 0.69 (0.6-1.2) mg/dl Est Cr Clr Drug Dosing 131.2 ml/min Est GFR ( Amer) 132.6 Est GFR (Non-Af Amer) 114.4 BUN/Creatinine Ratio 14.7 (10-20) Glucose 79 (70-99) mg/dl Calcium 7.6 L (8.5-10.1) mg/dl Total Bilirubin 0.3 (0.2-1) mg/dl AST 26 (15-37) U/L ALT 20 (12-78) U/L Alkaline Phosphatase 99 (45-117) U/L Total Protein 5.7 L (6.4-8.2) gm/dl Albumin 1.9 L (3.4-5.0) gm/dl Globulin 3.8 (2.5-4.0) gm/dl Albumin/Globulin Ratio 0.5 L (0.9-2) Medications Administered Current Inpatient Medications Acetaminophen (Tylenol) 650 mg PO Q6H PRN PRN Reason: Pain/CÁRDENAS/Fever Stop: 01/15/20 12:10 Albuterol (Ventolin Hfa) 2 puffs INH QID PRN PRN Reason: Cough Stop: 01/16/20 09:38 Benzocaine (Dermoplast Pain Relieving [place]) 1 appln EXT PRN PRN PRN Reason: Perineal Discomfort Stop: 01/15/20 12:10 Last Admin: 12/16/19 13:51 Dose: 1 appln Documented by: Bisacodyl (Dulcolax) 10 mg AR DAILY PRN PRN Reason: No BM on 2nd post- day Stop: 01/15/20 12:10 Cetirizine HCl (Zyrtec) 10 mg PO DAILY [facility] Stop: 01/16/20 09:44 Last Admin: 12/17/19 10:13 Dose: 10 mg Documented by: Cocaine HCl (Supercream 0.870%) 1 gm EXT BID PRN PRN Reason: Hemorrhoidal Inflammation Stop: 12/30/19 12:10 Last Admin: 12/17/19 08:08 Dose: 1 ea Documented by: Docusate Sodium (Colace) 100 mg PO DAILY@ [facility] Stop: 01/15/20 20:59 Last Admin: 12/17/19 20:12 Dose: 100 mg Documented by: Hydrocortisone (Anusol Hc) 25 mg AR BID PRN PRN Reason: Hemorrhoidal Inflammation Stop: 01/15/20 12:10 Oxytocin (Pitocin) 30 units in 500 mls @ 333.333 mls/hr IV .Q1H30M PRN; Protocol PRN Reason: Bleeding Control Stop: 01/14/20 16:07 Oxytocin (Pitocin) 30 units in 500 mls @ 333.333 mls/hr IV .Q1H30M PRN; Protocol PRN Reason: Bleeding Control Lactated Ringer's (Lr) 1,000 mls @ 75 mls/hr IV .[id number] [facility] Stop: 01/15/20 14:29 Last Infusion: 12/17/19 10:06 Dose: 0 mls/hr Documented by: Ibuprofen (Motrin) 600 mg PO Q4H PRN PRN Reason: Pain/CÁRDENAS/Cramping/Fever Stop: 01/15/20 12:10 Last Admin: 12/17/19 20:12 Dose: 600 mg Documented by: Labetalol HCl (Normodyne) 600 mg PO BID [facility] Stop: 01/16/20 20:59 Last Admin: 12/17/19 20:13 Dose: 600 mg Documented by: Prenat Multivit/[place]/Iron/Folic Ac ( Vitamin) 1 tab PO DAILY@08 [facility] Stop: 01/16/20 07:59 Last Admin: 12/17/19 09:29 Dose: 1 tab Documented by: <López Burnett MD - Last Filed: 12/18/19 07:59> Co-Signing Physician Notes Patient seen and evaluated and agree with the above findings and plan. Patient with s/p MgSO4 for severe PIH. BPs remain mostly mild range. Increased Labetalol dose to 800mg BID this am. Stable for discharge with BP <150s/100s this morning and early afternoon. Will arrange for 1 week BP check. Baby may be transferred to a NICU for questionable seizures. Resident Activity Tracking <Robel Herrera MD - Last Filed: 12/18/19 06:44> Resident Involvement: Resident Care Provided Care Provided: OB Delivery
[2019-12-18] MEDS ORDERED: LABETALOL HCL 200 MG TAB PO SCH (08:00)
[2019-12-18] MEDS: CETIRIZINE HCL 10 MG TABLET PO SCH (08:28)
[2019-12-18] MEDS: DOCUSATE SODIUM 100 MG CAP PO SCH (08:28)
[2019-12-18] MEDS: PRENATAL VITAMIN 1 TAB PO SCH (08:28)
--- NOTE | 2019-12-18 10:53 | Obstetrical Progress Note ---
Date of Service December 18, 2019 Assessment & Plan (1) Severe pre-eclampsia: (2) Severe hypertension: pt was increased to labetalol 800mg po bid by the outgoing md with her initial dose given at 9am. given other circumstances and lack of other sx. will allow about 2hr from dose to see if increasing labetalol was effective. if not, will likely need to add another agent. pt aware this will delay her leaving while we make sure her bps are managed well. she verbalized understanding. she is going to pump now, as we hear the helicopter coming in, and then before saying goodbye to baby we will see what her bp is doing. will need to d/w oncselina pierre md and collaborate if another agent is to be used, what that should be. Subjective Ambulation: ambulating normally Voiding: no voiding problems Feeding Type:: breast feeding (will start pumping) came to see pt when nurse informed me of some elevated bps. pt had dx of preeclampsia and had pp mag after on 12/16/19. she was increased to 800mg po bid of labetalol this am, with bp then of 150/85. she is crying now due to finding out her baby is being transferred to [place] shortly she says due to ? seizures. she denies majano or visual change. no ruq or epig pain. no n/v. her bps per nurse about 1hr after increased labetalol dose were 178/107 and then 162/99. (nurse told me these were after pt found out baby was leaving to go to tertiary care facility) Physical Exam Constitutional WD/WN, vitals as above (bps per hpi. around 10am ) Psychiatric Affect: + tearful affect Results & Data Vital Signs (Past 12 Hours) Vital Signs Temp Pulse Resp BP Pulse Ox 12/18/19 07:40 97.9 F 64 18 150/85 H 96 12/18/19 03:35 97.5 F L 78 18 152/87 H 98 12/17/19 22:50 97.9 F 81 16 135/85 97
== END 2019-12-18 15:05 | disposition home or self-care (01) | DRG 807 ==
LOC: OPB 15:14 → 4S2 15:16 → 4S1 19:22 → 4S2 12-17 12:05